=== PATIENT | female | born 1995 | race African-American/Black ===

== ENCOUNTER 2019-02-18 08:53 | Emergency (ER) | payer OTHER, SELFPAY ==
[2019-02-18 09:16] LABS: Bilirubin Negative (Negative); Blood, Urine Moderate (Negative); Glucose, Urine (Dipstick) Negative (Negative); Leukocyte Moderate (Negative); Nitrite Negative (Negative); Protein, Urine (Dipstick) 100 mg/dL (Neg-Trace); Urobilinogen 0.2 mg/dL (Less than 2)
[2019-02-18 09:24] LABS: Clarity Cloudy (Clear); Pregnancy Test - Urine (BHCG) Negative (Negative); Pregu Control Background? CLEAR/WHITE (CLR/WHITE); Pregu Control Bar Appear? YES (CONTROL BAR)
[2019-02-18 09:25] LABS: Bacteria/HPF 1+ HPF (None Seen); Squamous Epithelial 0-3 HPF (0-3)
[2019-02-18] MEDS ORDERED: Sulfameth/Trimethoprim DS 800-160mg TAB ONE (09:55)
[2019-02-18] MEDS ORDERED: Ibuprofen 200 MG TAB ONE (09:55)
== END 2019-02-18 10:00 | disposition home or self-care (01) ==
LOC: BURERS 08:53
DX: N39.0 Urinary tract infection, site not specified (principal)
CPT/HCPCS: 81003; 81015; 81025; 87077; 87086; 87186; 99284

== ENCOUNTER 2019-05-31 08:42 | Emergency (ER) | payer SELFPAY | END 2019-05-31 09:58 | disposition home or self-care (01) | LOC: BURERS 08:42 | DX: R05 Cough (principal) | CPT/HCPCS: 99281 ==